=== PATIENT | female | born 1995 | race American Indian/Alaskan Native ===

== ENCOUNTER 2018-08-11 19:24 | Emergency (ER) | payer SELFPAY ==
[2018-08-11 19:41] VITALS: BP 103/60
== END 2018-08-11 20:42 | disposition left against medical advice (07) ==
LOC: ED 19:24
DX: R51 Headache (principal); R11.2 Nausea with vomiting, unspecified; Z53.21 Procedure and treatment not carried out due to patient leaving prior to being seen by health care provider